=== PATIENT | female | born 1970 | race Two or more races ===

== ENCOUNTER 2017-04-19 18:52 | Emergency (ER) | payer BC, OTHER ==
[~2017-04-19] VITALS: Ht 154.9 cm; Wt 53.5 kg
[~2017-04-19 18:52] MED LIST: BENADRYL50 MG ORAL; LEVAQUIN500 MG ORAL; PANTOPRAZOLE SO40 MG ORAL; PROMETHAZINE-C118 M1 ORAL; ZOFRAN ODT4 MG ORAL
[2017-04-19 19:25] VITALS: BP 143/80
[2017-04-19 20:07] LABS: APPEARANCE,URINE CLEAR; BILIRUBIN, URINE NEGATIVE (NEGATIVE); COLOR,URINE PALE YELLOW; GLUCOSE, URINE (UA) NEGATIVE (NEGATIVE); KETONES,URINE NEGATIVE (NEGATIVE); LEUKOCYTE ESTERASE ,URINE 1+ (NEGATIVE); NITRITE,URINE NEGATIVE (NEGATIVE); PH,URINE 6 (4.5-8.0); PROTEIN,URINE 2+ (NEGATIVE); UROBILINOGEN,URINE 1 MG/DL (0.0-1.0)
--- NOTE | 2017-04-19 20:33 | Emergency Room Report ---
History of Present Illness General Chief Complaint: Vaginal Source: Patient Present Illness HPI Patient presents with 2 days of vaginal bleeding. This is not at the usual time for her period. Also heavier and without any of the premenstrual cramps she usually has. She denies any dysuria, fever, nausea, vomiting. She does have some tenderness in her breasts. The blood does not have an unusual odor. There is no itching or genital pain. She has 2 children. She's been for one year. The oldest is 24 and the youngest is 18. Fibroid by ultrasound long ago. No fevers, URI sy, rashes, bruising, other abnormal bleeding, back pain, joint pain, change in bowels. Some stress. Allergies: Coded Allergies: No Known Allergies (Unverified , 07/16/15) Patient History Social History Narrative , not working outside of the home Last Menstrual Period: today Now: No : 2 Reviewed Nursing Documentation: PMH: Agreed, PSxH: Agreed Review of Systems All Other Systems: negative except mentioned in HPI Physical Exam Vital Signs Date Time Temp Pulse Resp B/P (MAP) Pulse Ox O2 Delivery O2 Flow Rate FiO2 04/19/17 19:19 98.0 75 18 146/65 98 Room Air 98.1 Sp02 EP Interpretation: reviewed, normal General Appearance: well appearing, no apparent distress, GCS 15 Head: normocephalic Eyes: bilateral eye normal inspection, bilateral eye PERRL ENT: moist mucus membranes Neck: supple Respiratory: lungs clear, normal breath sounds Cardiovascular #1: regular rate, rhythm Cardiovascular #2: 2+ radial (R) Gastrointestinal: normal inspection, normal bowel sounds, non tender, no mass, non-distended Genitourinary: no CVA tenderness, other - menstrual blood, os closed, uterus slightly large, anterior Musculoskeletal: back normal, gait/station normal, normal range of motion Neurologic: alert, oriented x3, grossly normal Psychiatric: mood/affect normal Skin: normal inspection, warm/dry Medical Decision Making Diagnostic Impression: Primary Impression: Dysfunctional uterine bleeding ER Course Patient presents with abnormal vaginal bleeding. DDx: ectopic, miscarriage, DUB , fibroid, perimenopausal bleeding amongst others. Evaluation with urine and swabs. Exam most c/w fibroid and DUB. Declines pain medicine. Preg neg and UA without pyuria. WM neg. Advised patient to follow with Ob. Patient stable for outpatient observation and treatment. Laboratory Tests Test 04/19/17 19:46 Urine Color Pale yellow Urine Appearance Clear Urine pH 6 (4.5-8.0) Urine Specific [place] 1.015 (1.005-1.035) Urine Protein 2+ (NEGATIVE) H Urine Glucose (UA) Negative (NEGATIVE) Urine Ketones Negative (NEGATIVE) Urine Occult Blood 5+ (NEGATIVE) H Urine Nitrite Negative (NEGATIVE) Urine Bilirubin Negative (NEGATIVE) Urine Urobilinogen 1 MG/DL (0.0-1.0) H Urine Leukocyte Esterase 1+ (NEGATIVE) H Urine RBC Tntc /HPF (0 - 2) H Urine WBC 0-2 /HPF (0 - 2) Urine Squamous Epithelial Cells Few /LPF (NONE/OCC) Urine Bacteria Few /HPF (NONE) Urine HCG, Qualitative Negative Microbiology Date/Time Source Procedure Growth Status 04/19/17 20:30 Vaginal Wet Prep - Final Complete Last Vital Signs Date Time Temp Pulse Resp B/P (MAP) Pulse Ox O2 Delivery O2 Flow Rate FiO2 04/19/17 21:40 98.3 70 16 138/89 100 Room Air 98.3 Status: improved Disposition: HOME, SELF-CARE Condition: Improved Referrals: NON PHYSICIAN (PCP) Dexter Garzon M.D. Apr 19, 2017 20:33
[2017-04-19 21:35] VITALS: BP 138/89
[2017-04-19 21:40] VITALS: BP 138/89
== END 2017-04-19 21:40 | disposition home or self-care (01) ==
LOC: EMR 19:40
DX: N93.8 Other specified abnormal uterine and vaginal bleeding (principal)
CPT/HCPCS: 81003; 81025; 87210; 99283